=== PATIENT | female | born 1970 | race Caucasian/White ===

== ENCOUNTER 2016-08-19 12:57 | Outpatient (CLI) | payer OTHER ==
[~2016-08-19 12:57] MED LIST: PRENATAL1 TAB
--- NOTE | 2016-08-19 13:55 | DIAGNOSTIC IMAGING REPORT ---
PROCEDURE: MG BILATERAL DIAGNOSTIC W/CAD INDICATION: Medial left breast rash. Baseline. TECHNIQUE: CC and MLO digital views of each breast with true-lateral digital view of the left breast. In addition, spot compression CC and MLO views were obtained of the medial left breast (region of clinical concern). Study supervised by Dr. Williamson. COMPARISON: None. FINDINGS: MAMMOGRAM: Computer-aided detection applied. Moderately dense parenchymal pattern. No evidence of mass or suspicious calcification. Left breast ultrasound is not indicated at this time. IMPRESSION: 1. Negative mammogram. RESULT CODE: 1- Negative. A. A negative report should not delay biopsy if a dominant or clinically suspicious mass is present. 10-15% of cancers are not identified by x-ray. B. A negative report may reinforce clinical impression. C. Adenosis and dense breasts may obscure an underlying neoplasm. D. False positive reports average 6-10%. E.. A yearly screening mammogram is recommended. A reminder letter will be scheduled.
== END 2016-08-19 23:00 ==
LOC: MAM SRH 12:57
DX: N64.59 Other signs and symptoms in breast (principal)